=== PATIENT | female | born 1980 | race African-American/Black ===

== ENCOUNTER 2016-08-07 02:00 | Emergency (ER) | payer OTHER ==
[~2016-08-07] VITALS: Ht 149.9 cm; Wt 54.0 kg
[2016-08-07] MEDS ORDERED: METFORMIN HCL500 MG PO (02:51)
[2016-08-07 04:32] LABS: PLATELET COUNT 335 K/uL (152-353)
[2016-08-07 04:46] LABS: POTASSIUM 4.2 mmol/L (3.6-5.2); SODIUM 132 mmol/L (136-145)
[2016-08-07 05:22] VITALS: BP 118/66; TEMP 98.3
== END 2016-08-07 05:22 | disposition home or self-care (01) ==
LOC: ED 02:00
DX: K52.9 Noninfective gastroenteritis and colitis, unspecified (principal); E11.9 Type 2 diabetes mellitus without complications
CPT/HCPCS: 36415; 80053; 81000; 85027; 96360; 99284

== ENCOUNTER 2021-11-30 15:13 | Emergency (ER) | payer OTHER ==
[~2021-11-30] VITALS: Ht 147.3 cm; Wt 56.2 kg
[~2021-11-30 15:13] MED LIST: METFORMIN HCL500 MG PO
[2021-11-30 15:16] VITALS: BP 128/75; TEMP 99.6
== END 2021-11-30 17:19 | disposition home or self-care (01) ==
LOC: ED 15:13
PROC: 0HQGXZZ Repair Left Hand Skin, External Approach (ICD-10-PCS; principal; 2021-11-30)
PROC: 2W3KX1Z Immobilization of Left Finger using Splint (ICD-10-PCS; 2021-11-30)
DX: S61.211A Laceration without foreign body of left index finger without damage to nail, initial encounter (principal); W26.0XXA Contact with knife, initial encounter; Y93.G9 Activity, other involving cooking and grilling; Y92.89 Other specified places as the place of occurrence of the external cause
CPT/HCPCS: 90472; 90715; 99283

== ENCOUNTER 2021-12-09 09:10 | Emergency (ER) | payer OTHER ==
[~2021-12-09] VITALS: Ht 147.3 cm; Wt 56.2 kg
[2021-12-09 09:14] VITALS: BP 98/57; TEMP 97.1
== END 2021-12-09 10:30 | disposition home or self-care (01) ==
LOC: ED 09:10
DX: Z48.02 Encounter for removal of sutures (principal)